=== PATIENT | female | born 1975 | race Two or more races ===

== ENCOUNTER 2024-06-10 01:47 | Emergency (ER) | payer MEDICAID, SELFPAY ==
[2024-06-10 01:48] VITALS: BMI 26.1
--- NOTE | 2024-06-10 01:51 | EKG_ITS ---
[facility] Test Date: 2024-06-10 Pat Name: PARDEEP PAIZ Department: Room: - Gender: Female Life Skills Coach: : 1975 Requested By: ED Temporary Provider Order Number: [id number] Reading MD: ED Temporary Provider Measurements Intervals Anderson Rate: 72 P: 54 NV: 157 QRS: 1 QRSD: 83 T: -90 QT: 395 QTc: 434 Interpretive Statements SINUS RHYTHM POSSIBLE ANTERIOR MYOCARDIAL INFARCTION , OF INDETERMINATE AGE [30 ms Q WAVE IN V3/V4, OR R < 0.2 mV IN V4] MODERATE T-WAVE ABNORMALITY, CONSIDER LATERAL ISCHEMIA [-0.1+ mV T-WAVE IN I/aVL/V5/V6] MODERATE T-WAVE ABNORMALITY, CONSIDER INFERIOR ISCHEMIA [-0.1+ mV T-WAVE IN II/aVF] Compared to ECG 10/21/2023 14:18:21 Myocardial infarct finding now present Possible ischemia now present T-wave abnormality still present /store/S0/[id number]/ecg/[id number].pdf
[2024-06-10 01:58] VITALS: BP 199/141; BP 203/129; PULSE 70; RESP 20; TEMP 36.5; O2SAT 98
--- NOTE | 2024-06-10 02:06 | XR_ITS ---
Examination: CT brain head without contrast. 2-D sagittal coronal reconstructions Date and time of exam:June 10, 2024 1413 hrs. Indications: Onset dizziness vomiting today CTDI: vol (mGy):45.4 DLP: (mGycm):888 Technique: Multiple CT axial sections of the brain have been obtained, 5 mm slice thickness. Contrast has not been administered. 2-D sagittal, coronal reconstructions have been obtained Low dose protocols were performed. One or more of the following dose reduction techniques were used; automated exposure control, adjustment of the mA and/or KV according to patient size, use of iterative reconstruction technique. Findings: No significant ventricular enlargement. Intra-axial or extra-axial hemorrhage density is not seen. No mass effect or midline shift Basal cisterns are not remarkable. Fourth ventricle is midline. Cranial vault intact. Impression: Negative for acute hemorrhage, mass effect or midline shift
[2024-06-10 02:16] VITALS: BP 185/141; PULSE 74
[2024-06-10] MEDS: cloNIDine HCL 0.1 MG TABLET 0.3 MG PO (02:16)
[2024-06-10 02:17] VITALS: BP 185/141; PULSE 74
[2024-06-10] MEDS: METOPROLOL TARTRATE INJ 1 MG/ML AMP 5 ML 2.5 MG IVP (02:17)
--- NOTE | 2024-06-10 02:18 | EDNOTE_ITS ---
ED Chest Pain RME/HPI General Chief Complaint: Chest Pain Stated Complaint: DIZZY, VOMITING, CHEST PAIN Time Seen by Provider: 06/10/24 02:00 Arrival date/time: 06/10/24 01:47 RME / HPI RME / HPI narrative: This section includes all my notes and documentations, including HPI, PE, and ED course. Hi Castanon MD HPI: 48yo female with a history of HTN, epilepsy presents to the ED for a chief complaint of left-sided chest pain since yesterday. No radiation or migration. Patient describes her pain as pressure in nature. Patient states she has been taking her losartan as prescribed. She endorses associated N/V, headache, and lower abdominal pain. She denies any fever, chills, dizziness or any other associated symptoms. No speech or visual impairment. No loss of power in the arms or legs. No numbness or tingling. No other complaints reported. ROS: All negative except as documented in HPI. Physical Exam: General:? Alert and oriented.? Appears anxious. Eyes:? Conjunctivae and lids clear.? EOMI.? PERRL. ENT:? No nasal congestion.? Neck:? Supple.? No carotid bruit.? No JVD.?? Heart: Sinus tachycardia noted. Lungs:? No respiratory distress.? Good air movement.? No rhonchi, wheezing, rales.?? Chest: Tenderness with palpation of the anterior chest. Abdomen:? Soft with equivocal LLQ tenderness.? Normal bowel sounds.? No distension.? No rebound or guarding.?? Back:? No CVA tenderness.?? Legs:? No clubbing, cyanosis, edema.? Skin:? Warm and dry.?? Neuro:? Alert and oriented X 3.? Cranial Nerves II-XII grossly intact.? No peripheral motor deficits. I reviewed all diagnostic test results. My interpretation of the EKG is sinus rhythm with no acute ST?T changes. My review of the CT head report is NAD. My review of the CT chest/abdomen/pelvis report is NAD. Blood tests and urine tests unremarkable. At this point, diagnoses include hypertensive urgency and anxiety. Patient was initially given metoprolol 2.5 mg IV and oral clonidine 0.3 mg. No improvement noted. Hydralazine 10 mg IV given. Slight improvement noted. When patient requested help for severe headache, she was given Zofran 4 mg IV and morphine 4 mg IV. Headache improved. Ativan 1 mg IV given for persistent severe anxiety. Significant improvement noted. Recommended outpatient treatment. Based on my best medical judgment, made decision no further evaluation or treatment indicated at this time. Patient understands and agrees to the discharge instructions customized and printed, see below. Discharge instructions from Dr. Castanon: 1. After extensive evaluation, there is no life-threatening condition.? Such as stroke or brain tumor or heart attack or pulmonary embolism (blood clots in your lungs) or pneumothorax (collapsed lung). 2. You were treated for very high BP. Take clonidine 0.1 mg pills as needed based on SBP (higher number of BP). Check your BP twice daily (about 12 hours apart). If SBP > 140, take one pill. If SBP > 160, take two pills. If SBP > 180, take three pills. If SBP > 200, take four pills. 3. Take Xanax as needed.? You may have underlying stress/anxiety/nerves. Whether this helps or not will be valuable information to your private doctors. 4. See a private doctor on 06/11/24 for recheck. To make sure there is no serious underlying heart condition, ask to help you get more tests for your heart that cannot be done here in the ER.? Such as Holter Monitor (cardiac monitoring at home from a day to even a month), heart stress test (on treadmill or with medication), echocardiogram (imaging of your heart structures), heart catherization (checking for blockages in your heart arteries), and a referral to see a Artificial Breast Fabricator. Ask to review all test results and official radiology reports, to make sure you receive all necessary follow-ups and monitoring. 5. Seek immediate medical care with worsening or with any concerns.?? Hi Castanon MD Related Data Home Medications ?Medication ?Instructions ?Recorded ?Confirmed levetiracetam 250 mg tablet 500 mg PO DAILY 04/06/18 0 02/27/19 (Keppra) losartan 50 mg-hydrochlorothiazide 1 tab PO QDAY 04/0602/27/19 12.5 mg tablet phenytoin sodium extended 100 mg 200 mg PO QDAY 02/27/19 capsule Previous Rx's ?Medication ?Instructions ?Recorded zolmitriptan 2.5 mg disintegrating 2.5 mg PO Q4HR PRN migraine 04/06/18 tablet (Zomig ZMT) headache #14 tabs levetiracetam 500 mg tablet 500 mg PO BID #60 tabs 06/13 (Keppra) phenytoin sodium extended 200 mg 200 mg PO QDAY #30 ca ps 02/27/19 capsule diphenhydramine HCl 25 mg capsule 25 mg PO Q8H PRN all ergic symptoms 10/07/22 (Benadryl) #30 caps meloxicam 7.5 mg tablet 7.5 mg PO QDAY #14 tabs 09/25 09/16 alprazolam 0.5 mg tablet (Xanax) 0.5 mg PO BID PRN anx iety #20 tabs 06/10/24 clonidine HCl 0.1 mg tablet 0.1 mg PO BID #60 tabs Allergies Allergy/AdvReac Type Severity Reaction Status Date / Time No Known Allergies Allergy Verified 10/07/22 16:16 Review of Systems Review of Systems Systems Reviewed: All systems reviewed, normal except as documented Past Medical History Past Medical History NEUROLOGIC: Positive Neurological Disorders, Seizures, Epilepsy and Migraine CARDIAC: Positive Hypertension; Negative Cardiac Disorders or Congestive Heart Failure RESPIRATORY: Negative Chronic Obstructive Pulmonary Disease (COPD) or Asthma GASTROINTESTINAL: Negative Gastrointestinal Disorders GENITOURINARY: Negative Genitourinary Disorders or Renal Disease REPRODUCTIVE: Positive Previous Pregnancies MUSCULOSKELETAL: Negative Musculoskeletal Disorders ENDOCRINE: Negative Endocrine Disorders, Diabetes Mellitus Type 1 or Diabetes Mellitus Type 2 HEMATOLOGIC: Positive Blood Disorders and Anemia; Negative Sickle Cell Disease OTHER HISTORY: Positive Chicken Pox, Measles and Mumps; Negative Autoimmune Disease Family History FAMILY HISTORY: Negative Family Psychiatric Problems, Family Respiratory Disorders, Family Cardiac Disorders, Family Gastrointestinal Problems, Family Cancer, Family Surgery or Family Anesthesia Reaction Social History SMOKING STATUS: Never smoker ED Exam Narrative Physical exam: As noted in HPI. Course Quality Measures none Orders Category Date Time Status EKG (ED ONLY) *Do not use* NOW Care 06/10/24 01:51 Completed Saline [Insert IV] NOW Care 06/10/24 02:03 Completed Straight [In and Out Catheter] X1 Care 06/10/24 02:[address] chest abdomen pelvis wo Stat Exams 06/10/24 02:[address] head/brain wo con Stat Exams 06/10/24 02:06 Taken EKG (ED Only) Stat Exams 06/10/24 01:51 Draft Amylase Stat Lab 06/10/24 03:10 Completed CBC Stat Lab 06/10/24 02:15 Completed CMP [Comprehensive Metabolic Panel] Stat Lab 06/10/24 02:15 Completed Free T4 (Free Thyroxine) Stat Lab 06/10/24 02:15 Completed HCG Qualitative,Urine Stat Lab 06/10/24 03:00 Completed HCG,Qualitative Serum Stat Lab 06/10/24 03:10 Completed Lipase Stat Lab 06/10/24 03:10 Completed Magnesium Stat Lab 06/10/24 02:15 Completed TSH [Thyroid Stimulating Hormone] Stat Lab 06/10/24 02:15 Completed Troponin I Stat Lab 06/10/24 02:15 Completed UA, C/S IF [Urinalysis, C/S if Indicated] Stat Lab 06/10/24 03:00 Completed LORazepam [Ativan Inj] Med 06/10/24 03:02 Discontinued 1 mg IVP X1 ONE Metoprolol Tartrate Inj [Lopressor Inj] Med 06/10/24 02:03 Discontinued 2.5 mg IVP X1 ONE Morphine Inj Med 06/10/24 02:20 Discontinued 4 mg IVP X1 ONE Ondansetron Inj [Zofran Inj] Med 06/10/24 02:19 Discontinued 4 mg IV X1 ONE cloNIDine HCL [Catapres] Med 06/10/24 02:03 Discontinued 0.3 mg PO X1 ONE hydrALAZINE INJ [Apresoline Inj] Med 06/10/24 03:18 Discontinued 10 mg IV X1 ONE Vital Signs Vital signs: Vital Signs Temperature 97.7 F 06/10/24 01:58 Pulse Rate 70 06/10/24 01:58 Respiratory Rate 20 06/10/24 01:58 Blood Pressure 203/129 H 06/10/24 01:58 Pulse Oximetry (%) 98 06/10/24 01:58 Oxygen Delivery Method Room Air 06/10/24 01:58 Chest Pain MDM Narrative MDM Narrative:: Scribe Attestation: 06/10/24 - Sherine Coon am scribing for and in the pres ence of Dr. Castanon. Patient data External records reviewed:: [facility] previous records (Per chart review, patient was seen here on 10/21/23 for uterine fibroid.) Clinical information provided by:: patient Social determinants that could affect healthcare access:: none Patient has the following chronic illnesses:: HTN, epilepsy How is presenting disease/condition affected by chronic disease/condition?: caused by Evaluation data The following diagnostics were reviewed and interpreted by me:: lab results, radiology exam(s) and EKG tracing(s) Lab and/or radiology exams considered but not ordered:: none Interpretation Summary: Normal diagnostics. Medications / Prescriptions Medications or Prescriptions considered but not ordered:: none Medication administrations:: Medication Administration History Discontinued Medications Clonidine (Clonidine Hcl 0.1 Mg Tablet) 0.3 mg PO X1 ONE Stop: 06/10/24 02:04 Last Admin: 06/10/24 02:16 Dose: 0.3 mg Documented By: CB Hydralazine HCl (Hydralazine Inj 20 Mg/Ml Vial) 10 mg IV X1 ONE Stop: 06/10/24 03:19 Last Admin: 06/10/24 03:37 Dose: 10 mg Documented By: EF Lorazepam (Lorazepam 2 Mg/Ml Vial) 1 mg IVP X1 ONE Stop: 06/10/24 03:03 Last Admin: 06/10/24 03:15 Dose: 1 mg Documented By: CVL Metoprolol Tartrate (Metoprolol Tartrate Inj 1 Mg/Ml Amp 5 Ml) 2.5 mg IVP X1 ONE Stop: 06/10/24 02:04 Last Admin: 06/10/24 02:17 Dose: 2.5 mg Documented By: CB Morphine Sulfate (Morphine Sulf Inj 10 Mg/Ml Vial) 4 mg IVP X1 ONE Stop: 06/10/24 02:21 Last Admin: 06/10/24 02:27 Dose: 4 mg Documented By: SF Ondansetron HCl (Ondansetron Inj 2 Mg/Ml Inj 2 Ml) 4 mg IV X1 ONE; Protocol Stop: 06/10/24 02:20 Last Admin: 06/10/24 02:26 Dose: 4 mg Documented By: SF Clonidine, Metoprolol, Hydralazine, Ativan, Morphine, Zofran Consultations Consultation(s) initiated? (list below): No Diagnosis Chest Pain Differential Diagnosis: pneumothorax, stable angina, unstable angina pectoris, st elevation myocardial infarction, biliary colic and other (CVA, brain tumor, anxiety) Most likely diagnosis given after review of the tests above:: Hypertensive urgency and anxiety Admission Indicated Admission indicated?: not indicated Explain why admission is indicated or not indicated:: With significant improvement, there was no indication for admission. Admission Request Was there a request for admission?: No Disposition Plan Disposition Plan: Discharge Discharge Attestation Discharge Attestation: The patient and all family members were given an opportunity to ask questions and understood the discharge instructions. Discharge instructions specifically effects, indications for sooner follow up or return to the emergency department, and the expected course of current diagnosis. Patient condition: Stable Discharge Plan Plan Patient Disposition: HOME (Self Care) Prescriptions/Referrals Prescriptions/Med Rec: New clonidine HCl 0.1 mg tablet 0.1 mg PO BID Qty: 60 0RF alprazolam [Xanax] 0.5 mg tablet 0.5 mg PO BID PRN (Reason: anxiety) Qty: 20 0RF No Action phenytoin sodium extended 100 mg Capsule 200 mg PO QDAY losartan-hydrochlorothiazide 50-12.5 mg Tablet 1 tab PO QDAY levetiracetam [Keppra] 250 MG tablet 500 mg PO DAILY zolmitriptan [Zomig ZMT] 2.5 mg tablet,disintegrating 2.5 mg PO Q4HR PRN (Reason: migraine headache) Qty: 14 0RF levetiracetam [Keppra] 500 mg tablet 500 mg PO BID Qty: 60 0RF phenytoin sodium extended 200 mg capsule 200 mg PO QDAY Qty: 30 0RF diphenhydramine HCl [Benadryl] 25 mg capsule 25 mg PO Q8H PRN (Reason: allergic symptoms) Qty: 30 0RF meloxicam 7.5 mg tablet 7.5 mg PO QDAY Qty: 14 0RF Referrals: Sam Edwards MD [Primary Care Provider] - In 1 week Problem List Clinical Impression: Hypertensive urgency Patient/Caregiver Discharge Instructions Discharge Activity: activity as tolerated Education Materials: ED Anxiety Reaction, ED Hypertension, Established Additional Instructions: Discharge instructions from Dr. Castanon: 1. After extensive evaluation, there is no life-threatening condition.? Such as stroke or brain tumor or heart attack or pulmonary embolism (blood clots in your lungs) or pneumothorax (collapsed lung). 2. You were treated for very high BP. Take clonidine 0.1 mg pills as needed based on SBP (higher number of BP). Check your BP twice daily (about 12 hours apart). If SBP > 140, take one pill. If SBP > 160, take two pills. If SBP > 180, take three pills. If SBP > 200, take four pills. 3. Take Xanax as needed.? You may have underlying stress/anxiety/nerves. Whether this helps or not will be valuable information to your private doctors. 4. See a private doctor on 06/11/24 for recheck. To make sure there is no serious underlying heart condition, ask to help you get more tests for your heart that cannot be done here in the ER.? Such as Holter Monitor (cardiac monitoring at home from a day to even a month), heart stress test (on treadmill or with medication), echocardiogram (imaging of your heart structures), heart catherization (checking for blockages in your heart arteries), and a referral to see a Artificial Breast Fabricator. Ask to review all test results and official radiology reports, to make sure you receive all necessary follow-ups and monitoring. 5. Seek immediate medical care with worsening or with any concerns.?? Instrucciones de angel del Dr. Castanon: 1. Tras ashley evaluaci?n exhaustiva, no se observa ninguna afecci?n potencialmente mortal, kylie un derrame cerebral, un tumor cerebral, un infarto de miocardio, ashley embolia pulmonar (co?gulos de sruthi en los pulmones) o un neumot?rax (colapso pulmonar). 2. Recibi? tratamiento para la presi?n arterial muy angel. [place] clonidina de 0,1 mg en pastillas seg?n sea necesario, seg?n la presi?n arterial sist?lica (PAS). Controle ledesma presi?n arterial dos veces al d?a (con un intervalo de aproximadamente 12 horas). Si la PAS es > 140, tome ashley pastilla. Si la PAS es > 160, tome dos pastillas. Si la PAS es > 180, tome adelfo pastillas. Si la PAS es > 200, tome cuatro pastillas. 3. [place] Xanax seg?n sea necesario. Es posible que tenga estr?s, ansiedad o nerviosismo subyacentes. Si esto le ayuda o no, ser? ashley informaci?n valiosa para blake m?dicos. 4. Consulte con un m?dico particular el 06/11/24 para ashley nueva revisi?n. Para asegurarse de que no haya ashley afecci?n card?harper subyacente grave, solicite ayuda para realizar m?s pruebas card?acas que no se pueden realizar en urgencias. Kylie un Holter (monitorizaci?n card?harper en casa desde un d?a hasta un mes), ashley prueba de esfuerzo (en cinta o con medicaci?n), un ecocardiograma (im?genes de las estructuras card?acas), un cateterismo card?aco (para detectar obstrucciones en las arterias card?acas) y ashley derivaci?n a un cardi?logo. Solicite la revisi?n de todos los resultados de las pruebas y los informes radiol?gicos oficiales para asegurarse de recibir todos los seguimientos y la monitorizaci?n necesarios. 5. [place] atenci?n m?dica inmediata si presenta un empeoramiento o si tiene alguna inquietud. Print Language: Icelandic Stand Alone Forms: Valeri Award Info., Patient Portal Info Letter
--- NOTE | 2024-06-10 02:20 | XR_ITS ---
Examination: CT chest, without intravenous contrast. CT abdomen, without intravenous contrast. CT pelvis, without intravenous contrast. 2-D sagittal and coronal reconstructions. 3-D reconstructions. Date and time of exam:June 10, 2024 0235 hrs. Indications: Chest pain abdominal pain dizziness and vomiting today CTDI vol (mgy) 7.22 DLP (MGycm)475 Technique: Multiple CT images, 3.0 mm slice thickness, obtained chest, abdomen, pelvis, with the high-resolution 64 slice scanner.. Sagittal and coronal 2-D reconstructions are obtained. 3-D reconstructions Low dose protocols were performed. One or more of the following dose reduction techniques were used; automated exposure control, adjustment of the mA and/or KV according to patient size, use of iterative reconstruction technique. Findings: No thoracic aortic aneurysm dilatation Pulmonary artery segments are not enlarged. Mild enlargement left atrium No paratracheal tracheobronchial or bronchopulmonary adenopathy No pneumonia or pulmonary edema No focal liver or splenic lesion Contracted gallbladder No pancreatic or adrenal mass. No renal or ureteral calculi, no hydronephrosis Multiple small lymph nodes in the right lower mesentery, normal appendix Small fat-containing umbilical hernia Scattered colonic diverticulosis, no diverticulitis Mildly enlarged fundus of uterus, anteverted uterus Minimal thickening of urinary bladder wall Intact osseous structures Impression: No mediastinal lymphadenopathy. No pneumonia or pulmonary edema Normal appendix No bowel obstruction Colonic diverticulosis, no diverticulitis Cystitis pattern
[2024-06-10] MEDS: ONDANSETRON INJ 2 MG/ML INJ 2 ML 4 MG IV (02:26)
[2024-06-10] MEDS: MORPHINE SULF INJ 10 MG/ML VIAL 4 MG IVP (02:27)
[2024-06-10 02:28] LABS: Basophils # (Auto) 0.1 Thou/mm3 (0.0-0.2); Basophils % (Auto) 1 % (0-2.5); Eosinophils # (Auto) 0.2 Thou/mm3 (0.0-0.5); Eosinophils % (Auto) 2 % (0-10); Hematocrit 34.1 % (36.0-46.0); Hemoglobin 10.7 g/dL (12.0-16.0); Immature Granulocytes % (Auto) 0 % (0-0); Immature Granulocytes Auto 0.02 Thou/mm3 (0.00-0.00); Lymphocytes # (Auto) 2.5 Thou/mm3 (1.0-4.8); Lymphocytes % (Auto) 24 % (10-50); Mean Corpuscular HGB Conc 31.4 g/dl (31.0-37.0); Mean Corpuscular Volume 70 fL (80-100); Monocytes # (Auto) 0.9 Thou/mm3 (0.0-0.8); Monocytes % (Auto) 8 % (0-12); Neutrophils % (Auto) 66 % (37-80); Nucleated Red Blood Cell % 0 /100 WBC (0); Platelet Count 263 Thou/mm3 (140-440); RDW Standard Deviation 37.5 fL (36.4-46.3); Red Blood Count 4.87 Miln/mm3 (4.00-5.20); White Blood Count 10.7 Thou/mm3 (3.6-11.0)
[2024-06-10 02:54] LABS: Alanine Aminotransferase 14 U/L (10-49); Albumin, Serum 4.4 gm/dL (3.5-5.0); Albumin/Globulin Ratio 1.6 (1.2-2.2); Alkaline Phosphatase 63 U/L (46-116); Anion Gap 8 (7-16); Aspartate Amino Transferase 15 U/L (0-34); BUN/Creatinine Ratio 16 Ratio (12-20); Bilirubin,Total 0.7 mg/dL (0.3-1.2); Blood Urea Nitrogen 13 mg/dL (9-23); Calcium 9.4 mg/dL (8.3-10.6); Calcium (Corrected) 9.4 mg/dL (8.5-10.1); Carbon Dioxide 25.9 mMol/L (20.0-31.0); Chloride 109 mMol/L (98-107); Creatinine (Component) 0.8 mg/dL (0.6-1.3); Estimated Creatinine Clearance 83.8 mL/min (>60); Free T4 (Free Thyroxine) 1.21 ng/dL (0.89-1.76); Globulin 2.7 gm/dL (2.3-3.5); Glucose 101 mg/dL (74-106); Osmolality,Calculated 285 (275-295); Potassium 3.8 mMol/L (3.4-5.1); Sodium 143 mMol/L (136-145); Thyroid Stimulating Hormone 3.95 uIU/mL (0.55-4.78); Total Protein 7.1 gm/dL (5.7-8.2); Troponin I < 0.020 ng/mL (0.0-0.045); eGFR > 60 See Note
[2024-06-10 03:04] LABS: Collection Type, Urine Clean Catch
--- NOTE | 2024-06-10 03:11 | PRELIM_ITS ---
CT scan of the head without intravenous contrast (axial sections with sagittal and coronal reformats). June 10, 2024 0213 hours Clinical History: Headache and high BP Comparison: No prior study is available for comparison. Findings: No evidence of intracranial hemorrhage, mass effect or midline shift. The ventricles and CSF spaces are unremarkable. The calvarium is unremarkable. The mastoid air cells and the visualized paranasal sinuses are clear. Impression: 1. No evidence of intracranial hemorrhage, mass effect or midline shift. 2. Other findings as described above. Suggest clinical correlation and follow up accordingly. Report Electronically Signed By: Seth Rodgers 06/10/2024 3:10:35 AM [EST]
[2024-06-10 03:14] LABS: Bilirubin,Urine Negative (Negative); Blood,Urine Negative (Negative); Clarity,Urine Clear (Clear/Hazy); Color,Urine Colorless (Lt Yel-Yel); Culture Indicated,Urine Not Indicated; Glucose, Urine Negative (Negative); Ketones,Urine Negative (Negative); Leukocyte Esterase,Urine Positive (Negative); Nitrite,Urine Negative (Negative); Protein,Urine Negative (Neg - Trace); RBC,Urine 1 /hpf (0-3); Squamous Epithelial Cell,Urine 3 /hpf (0-5); Urobilinogen,Urine Negative mg/dL (0.0-1.0); WBC,Urine 1 /hpf (0-5)
[2024-06-10] MEDS: LORazepam 2 MG/ML VIAL 1 MG IVP (03:15)
[2024-06-10 03:34] LABS: Amylase 85 U/L (30-118); Lipase 33 U/L (12-53)
[2024-06-10 03:35] LABS: HCG,Qualitative Serum Negative
[2024-06-10 03:37] VITALS: BP 168/116; PULSE 70
[2024-06-10] MEDS: hydrALAZINE INJ 20 MG/ML VIAL 10 MG IV (03:37)
[2024-06-10 03:41] VITALS: BP 168/116; PULSE 73; RESP 14; TEMP 36.6; O2SAT 100
[2024-06-10 04:03] LABS: HCG Qualitative,Urine Negative
--- NOTE | 2024-06-10 04:07 | PRELIM_ITS ---
CT scan of the chest, abdomen and pelvis without intravenous contrast (axial sections with sagittal and coronal reformats) June 10, 2024 0235 hours Clinical History: Chest pain and abdominal pain Comparison: None Findings: The evaluation is limited by respiratory motion. Bibasilar dependent atelectasis is present. There is no pleural effusion or pneumothorax. The aorta is unremarkable on this noncontrast study. No evidence of mediastinal mass or lymphadenopathy. There is no pericardial effusion. The liver, gallbladder, spleen, pancreas, adrenals and kidneys are unremarkable on this noncontrast study. No evidence of bowel obstruction. A moderate amount of fecal material is present in the colon. There are multiple colonic diverticula without evidence of diverticulitis. The appendix is within normal limits (coronal image 70-76/132) The urinary bladder is partially distended and shows mild wall thickening; possibility of cystitis cannot be excluded. The uterus and adnexa are unremarkable. There is no free fluid or free air. There is suggestion of pelvic floor laxity with possible rectocele. Mild degenerative changes are identified in the spine. Please note that evaluation of soft tissue/vascular structures and bowel loops is limited due to absence of IV and oral contrast. Impression: 1. No evidence of segmental lung consolidation or pleural effusion. 2. No evidence of acute pancreatitis. 3. Partially distended urinary bladder with mild wall thickening; possibility of cystitis cannot be excluded. 4. Other findings as described above. Suggest clinical correlation and follow up accordingly. Report Electronically Signed By: Seth Rodgers 06/10/2024 4:05:58 AM [EST]
[2024-06-10 04:57] VITALS: BP 149/94; PULSE 82; RESP 15; TEMP 36.5; O2SAT 100
== END 2024-06-10 04:58 | disposition home or self-care (01) ==
PROVIDERS: Emergency Provider Emergency Medicine; PCP Family Medicine
DX: I16.0 Hypertensive urgency (principal); I10 Essential (primary) hypertension; R94.31 Abnormal electrocardiogram [ECG] [EKG]; R10.30 Lower abdominal pain, unspecified; R11.10 Vomiting, unspecified; R42 Dizziness and giddiness
CPT/HCPCS: 36415; 70450; 71250; 74176; 80053; 81001; 81025; 82150; 83690; 83735; 84439; 84443; 84484; 84703; 85025; 93005; 96374; 99284; J0360; J2060; J2270; J2405; J3490; A9270

== ENCOUNTER 2024-12-08 14:36 | Emergency (ER) | payer MEDICAID, SELFPAY ==
[2024-12-08 14:36] VITALS: BMI 24.5
[2024-12-08 14:58] VITALS: BP 195/110; PULSE 70; RESP 20; TEMP 36.7; O2SAT 98
[2024-12-08 15:43] VITALS: BP 195/110; PULSE 70
[2024-12-08] MEDS: DIPHTH,PERTUSS(ACELL),TET VAC 0.5 ML SYR- ADULT IMi (15:48)
[2024-12-08] MEDS: ACETAMINOPHEN 500 MG TABLET 1000 MG PO (16:11)
--- NOTE | 2024-12-08 16:21 | PD.EDHAND ---
Upper Extremity Injury RME/HPI General Chief Complaint: Hand/Wrist Problems Stated Complaint: LAC TO LEFT HAND Time Seen by Provider: 12/08/24 14:37 Arrival date/time: 12/08/24 14:36 49-year-old female presents to the emergency department due to complaints of laceration left hand fifth digit patient reports he was try to cut potatoes and injured her finger Limitations: no limitations Related Data Home Medications ?Medication ?Instructions ?Recorded ?Confirmed levetiracetam 250 mg tablet 500 mg PO DAILY 04/06/18 02/27/19 (Keppra) losartan 50 mg-hydrochlorothiazide 1 tab PO QDAY 04/06/18 02/27/19 12.5 mg tablet phenytoin sodium extended 100 mg 200 mg PO QDAY 04/06/18 02/27/19 capsule Previous Rx's ?Medication ?Instructions ?Recorded zolmitriptan 2.5 mg disintegrating 2.5 mg PO Q4HR PRN migraine 04/06/18 tablet (Zomig ZMT) headache #14 tabs levetiracetam 500 mg tablet 500 mg PO BID #60 tabs 02/27/19 (Keppra) phenytoin sodium extended 200 mg 200 mg PO QDAY #30 caps 02/27/19 capsule diphenhydramine HCl 25 mg capsule 25 mg PO Q8H PRN allergic symptoms 10/07/22 (Benadryl) #30 caps meloxicam 7.5 mg tablet 7.5 mg PO QDAY #14 tabs 10/21/23 alprazolam 0.5 mg tablet (Xanax) 0.5 mg PO BID PRN anxiety #20 tabs 06/10/24 clonidine HCl 0.1 mg tablet 0.1 mg PO BID #60 tabs 06/10/24 Allergies Allergy/AdvReac Type Severity Reaction Status Date / Time No Known Allergies Allergy Verified 12/08/24 14:38 Review of Systems Review of Systems Systems Reviewed: All systems reviewed, normal except as documented Constitutional Constitutional: Reports system reviewed and no additional complaints, except as documented, Denies fever(s) and Denies headache(s) Eyes Eyes: Reports system reviewed and no additional complaints, except as documented and Denies blurry vision ENT Ears, Nose, Mouth, and Throat: Reports system reviewed and no additional complaints, except as documented, Denies headache(s), Denies nasal congestion and Denies nasal discharge Cardiovascular Cardiovascular: Reports system reviewed and no additional complaints, except as documented, Denies chest pain and Denies dyspnea Respiratory Respiratory: Reports system reviewed and no additional complaints, except as documented, Denies chest congestion, Denies cough and Denies dyspnea Gastrointestinal Gastrointestinal: Reports system reviewed and no additional complaints, except as documented and Denies abdominal pain Integumentary/Breasts Skin/Breast: Reports system reviewed and no additional complaints, except as documented, Denies rash and Reports wounds (Laceration left hand fifth digit) Neurologic Neurologic: Reports system reviewed and no additional complaints, except as documented, Reports as per HPI and Denies headache(s) Past Medical History Past Medical History NEUROLOGIC: Positive Neurological Disorders, Seizures, Epilepsy and Migraine CARDIAC: Positive Hypertension; Negative Cardiac Disorders or Congestive Heart Failure RESPIRATORY: Negative Chronic Obstructive Pulmonary Disease (COPD) or Asthma GASTROINTESTINAL: Negative Gastrointestinal Disorders GENITOURINARY: Negative Genitourinary Disorders or Renal Disease REPRODUCTIVE: Positive Previous Pregnancies MUSCULOSKELETAL: Negative Musculoskeletal Disorders ENDOCRINE: Negative Endocrine Disorders, Diabetes Mellitus Type 1 or Diabetes Mellitus Type 2 HEMATOLOGIC: Positive Blood Disorders and Anemia; Negative Sickle Cell Disease OTHER HISTORY: Positive Chicken Pox, Measles and Mumps; Negative Autoimmune Disease Family History FAMILY HISTORY: Negative Family Psychiatric Problems, Family Respiratory Disorders, Family Cardiac Disorders, Family Gastrointestinal Problems, Family Cancer, Family Surgery or Family Anesthesia Reaction Social History SMOKING STATUS: Never smoker ED Exam General Limitations: Present no limitations General appearance: Present alert and in no apparent distress Head Head exam: Present atraumatic Eye Eye exam: Present normal appearance, PERRL and EOMI ENT ENT exam: Present normal exam, normal oropharynx and mucous membranes moist Neck Neck exam: Present normal inspection, full ROM and trachea midline Chest Chest inspection: Present normal inspection and symmetric chest wall rise Respiratory Respiratory exam: Present normal lung sounds bilaterally Cardiovascular Cardiovascular exam: Present regular rate, normal rhythm and normal heart sounds Abdominal Exam Abdominal exam: Present soft and normal bowel sounds Extremities Exam Extremities exam: Present full ROM and tenderness (Laceration left hand fifth digit); Absent joint swelling Back Exam Back exam: Present normal inspection and full ROM Neurological Exam Neurological exam: Present alert, oriented X3 and CN II-XII intact Psychiatric Psychiatric exam: Present normal affect and normal mood Skin Skin exam: Present warm, dry, intact and normal color Course Quality Measures none Orders Category Date Time Status Set Up Suture Tray STAT Care 12/08/24 15:18 Completed Wound Care NOW Care 12/08/24 15:18 Completed Acetaminophen Tab [Tylenol ES Tab] Med 12/08/24 15:56 Discontinued 1,000 mg PO X1 ONE Lidocaine 1% 20 ml [Xylocaine 1% 20 ML] Med 12/08/24 15:18 Discontinued 20 ml INFL X1 ONE NIFEdipine [Procardia] Med 12/08/24 15:17 Discontinued 20 mg PO X1 ONE TET,DIP/PERT AC (Adult)-Tdap [Boostrix Adult (Tdap) Med 12/08/24 15:18 Discontinued Vacc] 0.5 ml IMI .ONCE ONE Vital Signs Vital signs: Vital Signs Temperature 98.0 F 12/08/24 14:58 Pulse Rate 70 12/08/24 14:58 Respiratory Rate 20 12/08/24 14:58 Blood Pressure 195/110 H 12/08/24 14:58 Pulse Oximetry (%) 98 12/08/24 14:58 Oxygen Delivery Method Room Air 12/08/24 14:58 O2 saturation 98% room air within the limits PROCEDURES: Laceration Laceration 1: Site: hand Side (If applicable): left Size (cm): 1 Description: linear Depth: simple, single layer Amount of anesthesia used (mL): 0 Pre-repair: irrigated extensively Skin layer closed with: other (dermabond) Extremity Injury MDM Narrative MDM Narrative:: 49-year-old female presents to the emergency department due to complaints of laceration left hand fifth digit patient reports he was try to cut potatoes and injured her finger On exam patient has super laceration left hand fifth digit Wound irrigated copiously laceration repaired with Dermabond and Steri-Strips laceration less than half a centimeter Patient noted be hypertensive patient has a history of hypertension and per history not well-managed patient reports no headache dizziness or chest pain at this time Patient can medication for blood pressure I explained to the patient she must follow-up with her PCP for further evaluation and better management of her blood pressure patient states understanding Patient discharged home in no distress to follow-up with primary care doctor in the next 24 to 48 hours and for any worsening symptoms to return to the ER immediately Patient data External records reviewed:: [facility] previous records Clinical information provided by:: patient Social determinants that could affect healthcare access:: none Patient has the following chronic illnesses:: See history How is presenting disease/condition affected by chronic disease/condition?: caused by Evaluation data The following diagnostics were reviewed and interpreted by me:: other (specify) Lab and/or radiology exams considered but not ordered:: Considered not ordered Interpretation Summary: N/A Medications / Prescriptions Medications or Prescriptions considered but not ordered:: Given Medication administrations:: Medication Administration History Discontinued Medications Acetaminophen (Acetaminophen 500 Mg Tablet) 1,000 mg PO X1 ONE Stop: 12/08/24 15:57 Last Admin: 12/08/24 16:11 Dose: 1,000 mg Documented By: EF Diphtheria/Tetanus/Acell Pertussis (Diphth,Pertuss(Acell),Tet Vac 0.5 Ml Syr- Adult) 0.5 ml IMi .ONCE ONE Stop: 12/08/24 15:19 Last Admin: 12/08/24 15:48 Dose: 0.5 ml Documented By: EF Lidocaine HCl (Lidocaine Hcl 1% 20 Ml Vial) 20 ml INFL X1 ONE Stop: 12/08/24 15:19 Last Admin: 12/08/24 16:13 Dose: Not Given Documented By: EF Non-Admin Reason: Cancelled by Provider Nifedipine (Nifedipine 10 Mg Capsule) 20 mg PO X1 ONE Stop: 12/08/24 15:18 Last Admin: 12/08/24 15:43 Dose: 20 mg Documented By: EF Given Consultations Consultation(s) initiated? (list below): No Diagnosis Upper Extremity Injury Differential Diagnosis: other Most likely diagnosis given after review of the tests above:: Laceration, asymptomatic hypertension Admission Indicated Admission indicated?: not indicated Admission Request Was there a request for admission?: No Disposition Plan Disposition Plan: Discharge Discharge Attestation Discharge Attestation: The patient and all family members were given an opportunity to ask questions and understood the discharge instructions. Discharge instructions specifically effects, indications for sooner follow up or return to the emergency department, and the expected course of current diagnosis. Patient condition: Stable Discharge Plan Plan Patient Disposition: HOME (Self Care) Discharge Disposition comment: Stable Prescriptions/Referrals Prescriptions/Med Rec: No Action phenytoin sodium extended 100 mg Capsule 200 mg PO QDAY losartan-hydrochlorothiazide 50-12.5 mg Tablet 1 tab PO QDAY levetiracetam [Keppra] 250 MG tablet 500 mg PO DAILY zolmitriptan [Zomig ZMT] 2.5 mg tablet,disintegrating 2.5 mg PO Q4HR PRN (Reason: migraine headache) Qty: 14 0RF levetiracetam [Keppra] 500 mg tablet 500 mg PO BID Qty: 60 0RF phenytoin sodium extended 200 mg capsule 200 mg PO QDAY Qty: 30 0RF diphenhydramine HCl [Benadryl] 25 mg capsule 25 mg PO Q8H PRN (Reason: allergic symptoms) Qty: 30 0RF clonidine HCl 0.1 mg tablet 0.1 mg PO BID Qty: 60 0RF alprazolam [Xanax] 0.5 mg tablet 0.5 mg PO BID PRN (Reason: anxiety) Qty: 20 0RF meloxicam 7.5 mg tablet 7.5 mg PO QDAY Qty: 14 0RF Referrals: Sam Edwards MD [Primary Care Provider, Family Practice] - In 1 week Problem List Clinical Impression: Laceration of finger, Asymptomatic hypertension Patient/Caregiver Discharge Instructions Education Materials: ED Scar Tips to Minimize Additional Instructions: Please follow up with your primary care doctor in the next 24-48hrs for any worsening symptoms return here immediately Print Language: Ivorian Stand Alone Forms: Valeri Award Info., Patient Portal Info Letter PA/SIGNAL OPERATOR LINGUIST Supervising Physician PA/CHANCE Supervising Physician: Dr. victor
[2024-12-08 16:35] VITALS: BP 163/114; PULSE 98; RESP 20; TEMP 36.8; O2SAT 98
== END 2024-12-08 16:46 | disposition home or self-care (01) ==
PROVIDERS: Emergency Provider Emergency Medicine; PCP Family Medicine
DX: S61.412A Laceration without foreign body of left hand, initial encounter (principal); S61.219A Laceration without foreign body of unspecified finger without damage to nail, initial encounter; I10 Essential (primary) hypertension
CPT/HCPCS: 12001; 90471; 90715; 99284; A9270